=== PATIENT | male | born 1980 | race Caucasian/White ===

== ENCOUNTER → 2017-06-15 17:33 | Outpatient (CLI) | payer BC, SELFPAY ==
--- NOTE | 2017-06-15 | XR_ITS ---
XR shoulder RT min 2V, XR shoulder LT min 2V Ordering Physician: Cam Miller MD Patient Age: 36 years: Male HISTORY: ITS.REASON: PAINboth shoulders TECHNIQUE: 3 views of right and left shoulder COMPARISON :Contralateral shoulder from today. No previous studies otherwise RIGHT SHOULDER 3 VIEWS: humeral head and neck intact. Glenohumeral joint intact. AC joint with mild hypertrophic changes directed superiorly. Unimpressive. Reflects old injury or scapula intact. Right lung apex clear. IMPRESSION. Right shoulder intact. LEFT SHOULDER 3 VIEWS humeral head and neck intact. Glenohumeral joint intact.. Suggestion of of minor AC joint arthropathy. Note Slight ill-defined lateral margin of the clavicle at AC joint. Nonspecific..... Right lung apex clear.. Scant unremarkable. IMPRESSION: Glenohumeral joint intact on left as well as right. Humeral head and neck intact bilaterally. Suggestion mild arthropathy at the left AC joint. Equivocal minor observations left AC joint.. Left AC joint very slightly wider than the right, & with subtle less well-defined margin at the distal clavicle.-Could reflect some early degenerative and subchondral cystic changes. Possible old trauma?
== END ==
PROVIDERS: PCP Family Medicine; Visit Provider Family Medicine
DX: M25.511 Pain in right shoulder (principal); M25.512 Pain in left shoulder
CPT/HCPCS: 73030

== ENCOUNTER 2020-05-15 17:06 | Emergency (ER) | payer BC, SELFPAY ==
[2020-05-15 17:35] VITALS: BP 134/80; PULSE 87; RESP 19; TEMP 36.6; O2SAT 99; BMI 31.1
--- NOTE | 2020-05-15 18:04 | HMH.EDUTC ---
[facility] [place] Disposition Clinical Impression: Encounter for laboratory testing for COVID-19 virus Sinusitis Qualifiers: Sinusitis location: unspecified location Chronicity: unspecified Qualified Code(s): J32.9 - Chronic sinusitis, unspecified Disposition: Home, Self-Care Condition on Discharge: Good Instructions: DI for COVID-19 (Suspected or Confirmed ), Coronavirus Disease 2019, Preventing the Spread of Coronavirus Discharge Instructions Additional Instructions: *Monitor Temp, Over the counter Motrin or Tylenol as directed/as needed Tylenol every 4 hours and Motrin every 6 hours (as long as your family doctor has told you that you can take it) for fever or pain. and straight to ER if unable to lower temp less than 101.0 after medication given *Warm salt water gargles may help to soothe the throat *Throat Lozenges *Warm fluids like tea with honey may help to soothe the throat *Sleep elevated *Humidifier/Vaporizer Follow up IMMEDIATELY for new or worsening symptoms or no Noticeable improvement over the next 48-72 hours. 911 for difficulty breathing or swallowing You were tested for today for COVID19 your test result should be back in the next 24-48 hours, you may call to the [facility] to see if your test results are back in the next 48 hours [phone] [facility] hours are 9am-9pm You was given a handout with instructions for Self Quarantine and Self isolation for while you wait on test results and what to do if they are positive If you are positive the Health Dept will be contacting you also Prescriptions: methylPREDNISolone [Medrol 4mg tab] 4 mg PO DIRECTED #21 tab Transmission Status: Pending to [facility] Azithromycin [Z-Matt 250mg Tab] 250 mg PO DIRECTED #6 tab Transmission Status: Pending to [facility] Referrals: PCP,No [Primary Care Provider] - As needed Forms: Work/School Release Time of Disposition: 18:05 Medical Decision Making - Eb Inquiry Pt receiving controlled substance: No Eb was queried for this patient: No Vital Signs: 05/15/20 17:35 Temperature 97.8 F Temperature Source Oral Pulse Rate [Right Brachial] 87 Respiratory Rate 19 Blood Pressure [Right Arm] 134/80 Blood Pressure Mean [Right Arm] 98 Blood Pressure Source [Right Arm] Automatic Cuff Blood Pressure Position [Right Arm] Sitting 02 Sat by Pulse Oximetry 99 Oxygen Delivery Method Room Air Orders (Tests/Meds): ORDERS Category Date Time Status Covid-19 Nasal PCR Sendout [facility] Stat Lab 05/15/20 17:21 Ordered [facility] HPI - General Stated complaint: Covid Test Time Seen by Provider: 05/15/20 18:04 Mode of Arrival: Ambulatory Source of Information: Patient Limitations: No Limitations Description of Symptoms (Recalled from Triage Doc. by RN): REQUESTING COVID TEST, C/O CHILLS AND LOSS OF TASTE HEENT Symptoms (Recalled from RN notes): No Resp Symptoms (Recalled from RN notes): No Skin Symptoms (Recalled from RN notes): No MS Symptoms (Recalled from RN notes): No Functional Status (Recalled from RN notes): WNL - History of Present Illness Provider Complaint: Patient state that he wanted to get tested for COVID States that he has been having chills body aches and noticed he lost his taste States that he can taste some things but they dont taste right State that he has been having sinus pain and pressure for over a week and thought it was his allergies so he has been taking claritin D but not helping much and his drianage is thick yellowish in color - Related Data Previous Rx's Medication Instructions Recorded Azithromycin [Z-Matt 250mg Tab] 250 mg PO DIRECTED #6 tab 05/15/20 methylPREDNISolone [Medrol 4mg 4 mg PO DIRECTED #21 tab 05/15/20 tab] Allergies Allergy/AdvReac Type Severity Reaction Status Date / Time grass pollen Allergy Verified 09/13/17 13:14 penicillin G Allergy Verified 09/13/17 13:14 - Worker's Comp Is this a Worker's Comp case?: No [facility] History
[2020-05-15 18:20] VITALS: BP 134/80; PULSE 87; RESP 19; TEMP 36.6; O2SAT 99
--- NOTE | 2020-05-17 10:10 | PC.NURSE ---
patient notified of positive covid results
[2020-05-17 10:35] LABS: Covid-19 Nasal PCR Sendout P&C POSITIVE
== END 2020-05-15 18:22 | disposition home or self-care (01) ==
PROVIDERS: Emergency Provider Nurse Practitioner
DX: U07.1 COVID-19 (principal); J32.9 Chronic sinusitis, unspecified; Z88.0 Allergy status to penicillin
CPT/HCPCS: 99202; G0463; U0004

== ENCOUNTER 2023-05-02 08:24 | Emergency (ER) | payer BC, SELFPAY ==
[2023-05-02 08:35] VITALS: BP 141/89; PULSE 109; RESP 19; TEMP 37.3; O2SAT 98; BMI 30.7
--- NOTE | 2023-05-02 08:54 | ED_ITS ---
Discharge Plan Disposition Patient Disposition: Home, Self-Care Condition: Good Prescriptions Prescriptions: New azithromycin [Zithromax Z-Matt] 250 mg tablet See Rx Instructions .ROUTE .COMPLEX 5 Days Qty: 6 0RF Rx Instructions: For 250 mg dose pack: take 500 mg today (day 1), then 250 mg for 4 days (days 2-5) methylprednisolone [Medrol (Matt)] 4 mg tablets,dose pack See Rx Instructions .Route .COMPLEX 6 Days Qty: 21 0RF Rx Instructions: taper pack; Referrals Follow up/Referrals: Cam Miller MD [Primary Care Provider] - See instructions Activity Restrictions/Add. Instructions Additional Instructions/Restrictions: *Monitor Temp, Over the counter Motrin or Tylenol as directed/as needed Tylenol every 4 hours and Motrin every 6 hours (as long as your family doctor has told you that you can take it) for fever or pain. and straight to ER if unable to lower temp less than 101.0 after medication given *Warm salt water gargles may help to soothe the throat *Throat Lozenges? *Warm fluids like tea with honey may help to soothe the throat? *Sleep elevated *Humidifier/Vaporizer *If you did not take Penicillin shot or was unable to, start taking antibiotic immediately and make sure that you take it for the FULL length of time although you should start to feel better in 24-48 hours *change toothbrush and toothpaste 24-48 hours after starting to take antibiotics so you do not reinfect yourself Monitor Temp. Tylenol and/or Ibuprofen as needed. ER if fever is no less than 101 despite alternating Tylenol and Ibuprofen * Encourage fluids, water, Gatorade, powerade, pedialyte if /toddler/or child *Cold fluids, popsicles and ice cream may feel good on his throat Follow up IMMEDIATELY for new or worsening symptoms or no Noticeable improvement over the next 48-72 hours. 911 for difficulty breathing or swallowing Clinical Impressions Clinical Impression: Strep throat Instructions Patient Instructions: DI for Strep Throat, Strep Throat Discharge ED Provider: Charisma Covarrubias [facility] [place] General Stated complaint: headache, body aches, fever Mode of Arrival: Ambulatory Source of Information: Patient Limitations: No Limitations Time Seen by Provider: 05/02/23 08:54 Description of Symptoms (Recalled from Triage Doc. by RN): PATIENT C/O FEVER, BODY ACHES, SORE THROAT AND HEADACHE X 3 DAYS HEENT Symptoms (Recalled from RN notes): Yes Resp Symptoms (Recalled from RN notes): No Skin Symptoms (Recalled from RN notes): No MS Symptoms (Recalled from RN notes): No Functional Status (Recalled from RN notes): WNL History of Present Illness Provider Complaint: Patient states that for the last 3 days he has been having sore throat, swollen lymph nodes, headache, fever, and chills States that today he was still not feeling any better so he came in to get checked States that he took home COVID test and it was negative Related Data Previous Rx's Medication Instructions Recorded azithromycin 250 mg tablet See Rx Instructions PO .COMPLEX 5 05/02/23 (Zithromax Z-Matt) days #6 tabs methylprednisolone 4 mg tablets in See Rx Instructions .Route 05/02/23 a dose pack (Medrol (Matt)) .COMPLEX 6 days #21 tabs Allergies Allergy/AdvReac Type Severity Reaction Status Date / Time grass pollen Allergy Verified 09/13/17 13:14 penicillin G Allergy Verified 09/13/17 13:14 Worker's Comp Is this a Worker's Comp case?: No [facility] Disclaimer: The information contained in this section may have been updated after the patient was seen, as this information can be updated by other users. Surgical History (Updated 05/02/23 @ 08:53 by Angella Rader RN) History of tonsillectomy Social History Smoking Status: Never smoker alcohol intake: never substance use type: denies use current occupational status: employed Travel in the last 8 weeks: None ROS Obtained: Yes All systems reviewed & no additional complaints except as documented and Yes Systems reviewed as appropriate & no additional complaints except as documented Constitutional Constitutional: Reports system reviewed and no additional complaints, except as documented, Reports as per HPI, Reports chills, Reports fever(s) and Reports headache(s) ENT Ears, Nose, Mouth, and Throat: Reports system reviewed and no additional complaints, except as documented, Reports as per HPI, Reports headache(s), Reports nasal congestion and Reports sore throat Cardiovascular Cardiovascular: Reports system reviewed and no additional complaints, except as documented and Reports as per HPI Respiratory Respiratory: Reports system reviewed and no additional complaints, except as documented and Reports as per HPI Gastrointestinal Gastrointestingal: Reports system reviewed and no additional complaints, except as documented and as per HPI Neurologic Neurologic: Reports headache(s) Physical Exam General General appearance: alert and in no apparent distress ENT ENT exam: Present mucous membranes moist Expanded ENT Exam Nose exam: Absent sinus tenderness Throat exam: Present other (Pharyngeal erythema noted with PND) Respiratory Respiratory exam: Present normal lung sounds bilaterally; Absent respiratory distress or wheezes Cardiovascular Cardiovascular exam: Present regular rate, normal rhythm and normal heart sounds Abdominal Exam Abdominal exam: Present soft and normal bowel sounds; Absent distention or tenderness Neurological Exam Neurological exam: Present alert, oriented X3 and normal gait Medical Decision Making Eb Inquiry Pt receiving controlled substance: No Eb was queried for this patient: No Vital Signs: 05/02/23 08:35 Temperature 99.1 F Temperature Source Oral Pulse Rate [Right Brachial] 109 H Respiratory Rate 19 Blood Pressure [Right Arm] 141/89 H Blood Pressure Mean [Right Arm] 106 Blood Pressure Source [Right Arm] Automatic Cuff Blood Pressure Position [Right Arm] Sitting 02 Sat by Pulse Oximetry 98 Oxygen Delivery Method Room Air Lab Data Lab results reviewed: Yes I reviewed the patient's lab results.
[2023-05-02 08:58] VITALS: BP 141/89; PULSE 109; RESP 19; TEMP 37.3; O2SAT 98
[2023-05-02 08:59] LABS: UTC Strep Screen (Rapid) Positive (Negative)
[2023-05-02 09:02] LABS: UTC Influenza A Antigen Negative (Negative); UTC Influenza B Antigen Negative (Negative)
== END 2023-05-02 09:00 | disposition home or self-care (01) ==
PROVIDERS: Emergency Provider Nurse Practitioner; PCP Family Medicine
DX: J02.0 Streptococcal pharyngitis (principal); R07.0 Pain in throat; R51.9 Headache, unspecified; R50.9 Fever, unspecified; M79.18 Myalgia, other site
CPT/HCPCS: 87804; 87880; 99212; 99214; G0463